=== PATIENT | female | born 1980 ===

== ENCOUNTER 2018-04-30 05:38 | Inpatient (IN) | payer OTHER ==
[2018-04-30] VITALS (16 sets, daily range): BP systolic 102–131; BP diastolic 55–76
[~2018-04-30] VITALS: Ht 170.2 cm; Wt 73.9 kg
[~2018-04-30 05:38] MED LIST: IBUPROFEN600 MG ORAL; MELOXICAM7.5 MG PO
[2018-04-30] MEDS ORDERED: Zemuron 50mg/5ml Inj IV ONE (06:47)
[2018-04-30] MEDS ORDERED: LR 1000ml 1,000 ML IVLG SCH (06:55)
--- NOTE | 2018-04-30 06:59 | Anethesia Preoperative Eval ---
Anesthesia Pre-op PMH/ROS General Date of Evaluation: Apr 30, 2018 Time of Evaluation: 07:31 Anesthesiologist: Meme ASA Score: ASA 1 Mallampati Score Class I : Soft palate, uvula, fauces, pillars visible Class II: Soft palate, uvula, fauces visible Class III: Soft palate, base of uvula visible Class IV: Only hard plate visible Mallampati Classification: Class I Surgeon: Monika Diagnosis: Back Pain Surgical Procedure: L 5-S1 Microdiscetomy, Fasciotomy Anesthesia History: none Family History: no anesthesia problems Allergies: Coded Allergies: No Known Allergies (Unverified , 04/30/18) Medications: see eMAR Patient NPO?: Yes NPO Date: Apr 29, 2018 NPO Time: 2330 Past Medical History Pulmonary: Reports: other - Bronchitis, Pneumonia Anesthesia Pre-op Phys. Exam Physician Exam Last Vital Signs Date Time Temp Pulse Resp B/P (MAP) Pulse Ox O2 Delivery O2 Flow Rate FiO2 04/30/18 06:29 98.0 70 18 112/73 (86) 100 04/30/18 06:16 Room Air Constitutional: NAD Neurologic: CN 2-12 intact Cardiovascular: RRR Respiratory: CTA Gastrointestinal: S/NT/ND Airway Exam Mallampati Score: Class I MO: full ROM: full Teeth: intact Anesthesia Pre-op A/P Labs Urine Test Test 04/30/18 06:00 Urine HCG, Qualitative Negative (NEGATIVE) Risk Assessment & Plan Assessment: ASA 1 Plan: GA, GlideScope Go, SED Status Change Before Surgery: No Pre-Antibiotics Dru Grams Ancef IV Given Within 1 Hr of Incision: Yes Time Given: 07:56 Mateo Valentine MD Apr 30, 2018 06:59
[2018-04-30] MEDS ORDERED: DiphenhydrAMINE 50mg/ml Inj IVP PRN (07:00)
[2018-04-30] MEDS ORDERED: oxyCODONE HCL/Acetaminophen 5/325mg ORAL PRN (07:00)
[2018-04-30] MEDS ORDERED: Acetaminophen (Non formulary) 100 ML IV ONE (07:00)
[2018-04-30] MEDS ORDERED: LORazepam Inj 2mg/ml 1ml IV PRN (07:00)
[2018-04-30] MEDS ORDERED: Midazolam 2mg/2ml Inj IVP PRN (07:00)
[2018-04-30] MEDS ORDERED: Meperidine 50mg/ml Inj(FOR RIGORS ONLY) IVP PRN (07:00)
[2018-04-30] MEDS ORDERED: HYDROcodone/Acetamin 7.5/325 tab ORAL PRN ×3 (07:00→13:00)
[2018-04-30] MEDS ORDERED: fentaNYL 100 mcg/2 mL IV PRN (07:00)
[2018-04-30] MEDS ORDERED: Norco 5mg/325mg tab ORAL PRN ×2 (07:00→13:00)
[2018-04-30] MEDS ORDERED: Atropine Sulfate 0.4mg/ml inj IVP PRN (07:00)
[2018-04-30] MEDS ORDERED: ceFAZolin sod 2 GM in D5W 110 ML IVPB ONE (07:00)
[2018-04-30] MEDS ORDERED: Hydromorphone 0.5mg/0.5ml inj IVP PRN (07:00)
[2018-04-30] MEDS ORDERED: Metoclopramide 10mg/2ml Inj IVP PRN (07:00)
[2018-04-30] MEDS ORDERED: Ketorolac 30mg Inj IV PRN ×2 (07:00)
[2018-04-30] MEDS ORDERED: Sodium Chloride 10ml vial INJ ONE (07:02)
[2018-04-30] MEDS ORDERED: Lidocaine 1% MPF 10mg/ml 5ml ONE ×2 (07:02→10:06)
[2018-04-30] MEDS ORDERED: Dexamethasone 4mg/ml vial ONE (07:02)
[2018-04-30] MEDS ORDERED: fentaNYL 100 mcg/2 mL IV ONE ×2 (07:03→09:56)
[2018-04-30] MEDS ORDERED: Thrombin 5000 units TOPIC ONE ×2 (07:06→07:07)
[2018-04-30] MEDS ORDERED: Gelfoam Size TOPIC ONE (07:06)
[2018-04-30] MEDS ORDERED: Vancomycin 1gm vial IVPB ONE (07:06)
[2018-04-30] MEDS ORDERED: Bacitracin 50000 Units Vial ONE (07:06)
[2018-04-30] MEDS ORDERED: Bupivacaine w/Epi 0.5% 30ml Vial INJ ONE (07:06)
[2018-04-30] MEDS ORDERED: Lidocaine 1% Plain 30 ml INJ ONE (07:08)
--- NOTE | 2018-04-30 07:21 | Immediate Post-Op Evaluation ---
Immediate Post-Op Evalulation Immediate Post-Op Evalulation Procedure: L 5-S1 Microdiscetomy, Fasciotomy Date of Evaluation: Apr 30, 2018 Time of Evaluation: 10:29 IV Fluids: 807 LR Blood Products: 0 Estimated Blood Loss: 11 Urinary Output: 0 Blood Pressure Systolic: 115 Blood Pressure Diastolic: 55 Pulse Rate: 108 Respiratory Rate: 16 O2 Sat by Pulse Oximetry: 99 Temperature (Fahrenheit): 97 Pain Score (1-10): 2 Nausea: No Vomiting: No Complications 0 Patient Status: awake, reacts, patent, extubated, none Hydration Status: adequate Dru Grams Ancef IV Given Within 1 Hr of Incision: Yes Time Given: 07:56 Mateo Valentine MD Apr 30, 2018 07:21
[2018-04-30] MEDS ORDERED: Sterile Water For Irrig 2000ml IRRIG ONE (07:30)
[2018-04-30] MEDS ORDERED: LR 1000ml ONE (07:30)
[2018-04-30] MEDS ORDERED: NS Irrig 1000ml ONE (07:30)
--- NOTE | 2018-04-30 07:39 | Pre-Procedure Note/Attestation ---
Pre-Procedure Note/Attestation Complete Prior to Procedure Procedure Narrative: B/L L5-S1 microdecompression and microdiscectomy Indications for Procedure Pre-Operative Diagnosis: Lumbar radiculopathy and HNP with stenosis Attestation I attest that I discussed the nature of the procedure; its benefits; risks and complications; and alternatives (and the risks and benefits of such alternatives ), prior to the procedure, with the patient (or the patient's legal business representative). I attest that, if there was a reasonable possibility of needing a blood transfusion, the patient (or the patient's legal business representative) was given the [facility] standardized written summary, pursuant to the [place] Blood Safety Act ([place] Health and Safety Code # 1645, as amended). I attest that I re-evaluated the patient just prior to the surgery and that there has been no change in the patient's H&P, except as documented below: Magdaleno Frank MD Apr 30, 2018 07:39
[2018-04-30] MEDS ORDERED: Glycopyrrolate 0.2mg/ml 1ml Vial ONE (08:21)
[2018-04-30] MEDS ORDERED: Neostigmine 1mg/ml 10ml Inj ONE (08:21)
--- NOTE | 2018-04-30 10:03 | Brief Operative Note ---
Immediate Post Operative Note Operative Note Pre-op Diagnosis: Lumbar radiculopathy and HNP with stenosis Procedure: Bilateral L5-S1 microdecompression and microdiscectomy Post-op Diagnosis: same as pre-op Findings: consistent w/pre-op dx studies Surgeon: Monika Assistant County Engineer: No finance assistant Anesthesiologist: Magui Anesthesia: general Specimen: yes Complications: none Condition: stable Fluids: 800cc Estimated Blood Loss: minimal - 10cc Drains: none Implant(s) used?: No Magdaleno Frank MD Apr 30, 2018 10:03
[2018-04-30] MEDS ORDERED: Milk of Magnesia 30ml Ud ORAL PRN (13:00)
[2018-04-30] MEDS ORDERED: HYDROmorphone 1mg/ml Carpuject IVP PRN (13:00)
[2018-04-30] MEDS ORDERED: Naloxone 0.4mg/ml Inj IVP PRN (13:00)
[2018-04-30] MEDS ORDERED: HYDROmorphone 1mg/ml Carpuject SUBQ PRN (13:00)
[2018-04-30] MEDS: NS w/KCl 20mEq 1,000 ML IV SCH ×2 (13:39→23:37)
--- NOTE | 2018-04-30 13:41 | Diagnostic Imaging Report ---
Indication: Intraoperative film Comparison: None Findings: Single crosstable lateral view of the lumbar spine showing instrumentation posterior to L5-S1. IMPRESSION: Intraoperative localization film
[2018-04-30] MEDS: ceFAZolin sod 1 GM in D5W 55 ML IV SCH (15:33)
[2018-05-01] VITALS: BP 110/75
--- NOTE | 2018-05-01 00:15 | Operative Note - Dictated ---
DATE OF OPERATION: 04/30/2018 PREOPERATIVE DIAGNOSES: L5-S1 disk herniation, stenosis, annular tear, and bilateral lower extremity radiculopathy. POSTOPERATIVE DIAGNOSES: L5-S1 disk herniation, stenosis, annular tear, and bilateral lower extremity radiculopathy. PROCEDURE PERFORMED: 1. Right L5-S1 medial facetectomy, foraminotomy, and microdiskectomy. 2. Left L5-S1 medial facetectomy, foraminotomy, and microdiskectomy. 3. Intraoperative use of microscope. 4. Intraoperative use of fluoroscopy. SURGEON: Magdaleno Frank M.D. LITERACY COORDINATOR: None. ANESTHESIOLOGIST: Mateo Valentine M.D. ANESTHESIA: General endotracheal anesthesia. INTRAOPERATIVE FINDINGS: Herniated nucleus pulposus at L5-S1 with impingement and stenosis. ESTIMATED BLOOD LOSS: 10 mL. FLUIDS: 800 mL of crystalloid. INDICATIONS: This is a pleasant female who failed nonoperative treatments and option for above treatment was given. Risks, alternatives, and benefits were discussed with the patient at length. Risks include but are not limited to anesthesia complications including and medical complications including liver, kidney, cardiopulmonary deficits, CSF leak, nerve root injury, pars fracture, instability, reherniation as well as continued symptoms. The patient understood and wished to proceed. Written and verbal consent was given. DESCRIPTION OF OPERATION: The patient was brought into the operating room supine on a stretcher. Subsequently, appropriate IV lines were placed and 2 g of Ancef was administered. A surgical time-out was called. Anesthesia was induced and the patient was successfully intubated. Sequential compression devices were placed onto the bilateral lower extremities. The patient was gently turned over onto the Charlie frame. All bony prominences were well padded and the abdomen was assured to lay freely. The L5-S1 interspace was positively identified with fluoroscopy and an indelible marker was used to karthik the midline. The patient was prepped and draped in usual sterile fashion with alcohol, chlorhexidine scrub, ChloraPrep, and Ioban draping. At this point, approximately a midline incision was carried out over the L5-S1 interspace. Subperiosteal dissection was carried out bilaterally at L5-S1 and a radiopaque marker was placed at the lower pedicle level and the S1 pedicle was identified via lateral fluoroscopy and thus, the L5-S1 interspace was positively identified. Attention was first diverted to the left side. Integration Project Manager retractors were set into place and with a high-speed drill, an interlumbar laminotomy and medial facetectomy was carried out and with a 4-0 curved curette, the ligamentum flavum was released. A nerve hook was used to carefully peel the ligamentum flavum off the common dural sac and with #2 through #5 Kerrison punches, the ligamentum flavum was removed. Laminotomy of the superior aspect of the S1 lamina was done and the medial aspect of the superior articular facet was removed until the S1 pedicle was skeletonized. A #2 Kerrison punch was used to do a foraminotomy for the exiting L5 nerve root until the nerve root was completely decompressed. Once this was accomplished, attention was diverted to gently retracting the neural elements medially. With a Madison 4 retractor, the traversing nerve root as well as the common dural sac were carefully medially retracted. The epidural veins on the floor of the canal were carefully cauterized with bipolar cautery as well as gentle Gelfoam thrombin. Micro scissors were used to release the coagulated epidural vein and the floor of the canal was carefully dissected. A disk herniation was found in the left paracentral area in the lateral recess extending slightly into the neural foramina and with the use of a fresh #11 scalpel, a cruciate incision was carried out in the posterior annulus and with the use of a Marvin, forward-angled and backward-angled as well as straight pituitary rongeurs, Rachelle, Magoffin probe, nerve hook, and microdiskectomy was carried out until the floor of the canal was flat and there was no further impingement on the common dural sac as well as the traversing S1 nerve root. A complete decompression of the exiting L5 nerve root entailed until the L5-S1 neural foramina on the left side was completely patent. This was checked with a Harris ball and at this point, copious Triple Antibiotic micro irrigation of the disk space was done until all loose debris was removed. Valsalva 40 mmHg was done and there was no CSF leak. Now, attention was diverted to the right side and an interlumbar laminotomy, medial facetectomy, and foraminotomy entailed with the identical instruments. The high-speed drill was used to do a medial facetectomy and an interlumbar laminotomy. Straight and curved curettes were used to release the ligamentum flavum and nerve hook was used to carefully peel the ligamentum flavum off the common dural sac and with #2 to #5 Kerrison punches, the ligamentum flavum was removed. The medial aspect of the superior articular facet was removed until the S1 pedicle was skeletonized and the posterior aspect of the traversing S1 nerve was completely decompressed in the lateral recess and the subarticular recess. Once this was accomplished, a Madison 4 was used to carefully medially retract the traversing S1 nerve root as well as the common dural sac and nerve root retractor was used to retract the neural elements. Bipolar cautery was used to coagulate the epidural vein. Micro scissors were used to release the veins and Madison 4 was used to dissect the floor of the canal where a disk herniation was found impinging onto the neural elements. With a #11 scalpel, a cruciate incision was carried out and with the use of Marvin, forward-angled and backward-angled and straight pituitary rongeurs, a microdiskectomy entailed. Please note that the whole surgery from the skin incision to skin closure was done with an intraoperatively sterilely draped microscope and the microscope was used for microdissection of the neural elements including the common dural sac and the bilateral traversing S1 nerve roots. At this point, with the use of Rachelle, nerve hook, and Magoffin probe, the disk herniation was removed. Micro irrigation in the disk space was done to remove any loose debris in the disk space and now the floor of the canal including the floor of the central canal, the floor of the lateral recess, and the floor of the neural foramina was found to be flat. A complete foraminotomy of the exiting L5 nerve root entailed. A Harris ball was used to verify that the neural foramina was completely patent. Valsalva now was done at 40 mmHg. There was no CSF leak. The wound was copiously irrigated with Triple Antibiotic solution. There was no CSF leak and a final check of the neural foramina, lateral recess, and central canal revealed complete decompression of all neural elements. The disk herniations were removed and saved onto a Ray-Daly sponge and after the case, a photograph of the disk material which was removed was taken. Please note that all the disk material which was removed was not placed on the Ray-Daly and some of the disk material was sucked into the suction canister. At this point, images and photographs were taken with the microscope camera and now attention was diverted to closure. Hemostasis was achieved with Gelfoam, thrombin, FloSeal, bipolar cautery. EBL was 10 mL. There were no complications during the case. At this point, all sponge, needle, and instrument counts were correct. The dorsal lumbar fascia was closed with #1 Vicryl sutures in a watertight interrupted fashion. One gram of vancomycin powder was placed subfascially and suprafascially. The subdermal and subcuticular layers were both closed with 2-0 Vicryl sutures in an inverted watertight fashion. The skin was closed with Dermabond. Sterile dressing and tape was placed. All sponge, needle, and instrument counts were correct. There were no complications during the case. Specimen was sent off. Specimen was the L5-S1 disk. At this point, the patient was turned supine, was extubated in stable condition, was taken to the recovery room in stable condition, was admitted to the hospital, and taken to the floor for monitoring. Magdaleno Frank M.D. DR: Shane JOB#: [id number] CC:
[2018-05-01 04:00] VITALS: BP 112/77
[2018-05-01 08:03] VITALS: BP 103/63
[2018-05-01] MEDS: ceFAZolin sod 1 GM in D5W 55 ML IV SCH ×3 (08:14)
[2018-05-01] MEDS: NS w/KCl 20mEq 1,000 ML IV SCH (09:30)
[2018-05-01] MEDS ORDERED: NAPROXEN250 MG ORAL (10:31)
[2018-05-01] MEDS ORDERED: NORCO 5-325 TA1 EACH ORAL (10:32)
[2018-05-01 11:20] VITALS: BP 103/83
--- NOTE | 2018-05-01 11:20 | 48 Hour Post Anesthesia Eval ---
Post Anesthesia Evaluation Procedure: L 5-S1 Microdiscetomy, Fasciotomy Date of Evaluation: May 01, 2018 Time of Evaluation: 11:19 Blood Pressure Systolic: 103 0: 83 Pulse Rate: 68 Respiratory Rate: 20 Temperature (Fahrenheit): 98.5 O2 Sat by Pulse Oximetry: 95 Airway: patent Nausea: No Vomiting: No Pain Intensity: 2 Hydration Status: adequate Cardiopulmonary Status: Stable Mental Status/LOC: patient returned to baseline Follow-up Care/Observations: 0 Post-Anesthesia Complications: 0 Follow-up care needed: N/A Mateo Valentine MD May 01, 2018 11:20
--- NOTE | 2018-05-03 10:38 | Discharge Summary ---
Discharge Summary Hospital Course Date of Admission Apr 30, 2018 at 05:38 Date of Discharge May 01, 2018 at 10:50 Admitting Diagnosis Lumbar radiculopathy and HNP with stenosis Reason for Hospitalization: elective surgery HPI Guillermina Juarez is a 37 year old female who was admitted on Apr 30, 2018 at 05: 38 for Lumbar radiculopathy and HNP with stenosis. Patient was admitted for elective surgery. Procedures s/p 04/30/[address] Frank 1. Right L5-S1 medial facetectomy, foraminotomy, and microdiskectomy. 2. Left L5-S1 medial facetectomy, foraminotomy, and microdiskectomy. 3. Intraoperative use of microscope. 4. Intraoperative use of fluoroscopy. Hospital Course status post surgery course of recovery uneventful initially IV fluids s/p perioperative antibiotics neurovascular status closely monitored, stable incision with dressing, clean dry and intact pain management addressed, and pain was controlled hemodynamically stable ambulated with PT without difficulties with lumbar brace on fall precautions maintained; safe for ambulation tolerated diet , IV fluids discontinued GI prophylaxis provided antiemetics were on board as needed voided freely bowel regimen instituted patient was stable for discharge discharge instructions provided lumbar brace provided with instructions to wear while ambulating follow up with surgeon 05/11 as outpatient FINAL DIAGNOSES Lumbar radiculopathy and HNP with stenosis s/p bilateral L5-S1 microdecompression and microdiscectomy Discharge Medications Continued Medications: Hydrocodone Bit/Acetaminophen 5-325* ([place] 5-325*) 1 Each Tablet 1 TAB ORAL Q4H PRN for For Pain, #40 TAB 0 Refills (This prescription has been renewed) Naproxen* (Naprosyn*) 250 Mg Tablet 500 MG ORAL TWICE A DAY for pain, #40 TAB 0 Refills (This prescription has been renewed) Discharge Condition Upon Discharge: stable Discharge Disposition Patient was discharged to Home () Discharge Instructions Discharge Instructions Special Instructions I have been assigned to complete a D/C Summary on this account. I was not involved in the patient management Franchesca Chavez NP May 03, 2018 10:38
== END 2018-05-01 10:50 | disposition home or self-care (01) | DRG 520 ==
LOC: SDSOVERFLO 05:38 → 3E 12:12
PROC: 0ST40ZZ Resection of Lumbosacral Disc, Open Approach (ICD-10-PCS; principal; 2018-04-30 07:30)
DX: M51.17 Intervertebral disc disorders with radiculopathy, lumbosacral region (principal)
CPT/HCPCS: 36415; 72020; 76000; 81025; 86850; 86900; 86901; 87081; 94003; 94150; J2250; J2405; J2710